=== PATIENT | female | born 1955 | race Caucasian/White ===

== ENCOUNTER → 2016-08-17 | Outpatient (CLI) | payer BC ==
[~2016-08-17] MED LIST: HYDR-5688 PO; IBUP-1050 PO
== END | disposition home or self-care (01) ==
LOC: C.PAPS 14:20
PROVIDERS: ATTEND Obstetrics & Gynecology
DX: Z01.419 Encounter for gynecological examination (general) (routine) without abnormal findings (principal)

== ENCOUNTER → 2016-11-09 | Outpatient (CLI) | payer BC ==
--- NOTE | 2016-11-09 18:56 | DIAGNOSTIC IMAGING REPORT ---
LUMBAR SPINE MIN 4 VIEWS CLINICAL HISTORY: Lower back pain. COMPARISON: Lumbar spine radiographs January 18, 2010 and MRI of the lumbar spine January 25, 2010. FINDINGS: A few calcific densities are again noted overlying the right hemithorax. These measure up to 5.4 cm. These reflect calcified pleural plaques. These were present on prior exam. There is mild levoscoliosis of the lumbar spine. Vertebral body heights are maintained. There is no fracture. There is moderate disc space narrowing and osteophytosis at L4-L5 as well as L5-S1. IMPRESSION: 1. Mild levoscoliosis of the lumbar spine. 2. Moderate degenerative disc disease at L4-L5 and L5-S1. 3. No lumbar spine fracture. 4. Several calcified pleural plaques within the right lower hemithorax. Electronically signed by: Obie Hoyos M.D. 11/09/2016 6:54 PM Dictated Date/Time: 11/09/2016 6:52 PM
== END | disposition home or self-care (01) ==
LOC: C.RDSM 15:47
PROVIDERS: ATTEND Physical Medicine & Rehabilitation Sports Medicine
DX: M51.36 Other intervertebral disc degeneration, lumbar region (principal); M51.37 Other intervertebral disc degeneration, lumbosacral region; J92.9 Pleural plaque without asbestos

== ENCOUNTER → 2016-11-29 | Outpatient (CLI) | payer BC | END | disposition home or self-care (01) | LOC: C.MAMM 14:48 | PROVIDERS: ATTEND Physical Medicine & Rehabilitation Sports Medicine | DX: S39.012A Strain of muscle, fascia and tendon of lower back, initial encounter (principal); X58.XXXA Exposure to other specified factors, initial encounter; M85.89 Other specified disorders of bone density and structure, multiple sites ==

== ENCOUNTER → 2017-04-24 | Outpatient (CLI) | payer BC | END | disposition home or self-care (01) | LOC: C.RDSM 12:00 | PROVIDERS: ATTEND Physical Medicine & Rehabilitation Sports Medicine | DX: M79.644 Pain in right finger(s) (principal) ==

== ENCOUNTER → 2017-04-27 | Outpatient (CLI) | payer BC ==
--- NOTE | 2017-04-28 07:43 | MAMMOGRAPHY REPORT ---
BILATERAL DIGITAL SCREENING MAMMOGRAM TOMOSYNTHESIS WITH CAD: 04/27/2017 CLINICAL HISTORY: Routine screening. Patient has no complaints. TECHNIQUE: Breast tomosynthesis in addition to standard 2D mammography was performed. Current study was also evaluated with a Computer Aided Detection (CAD) system. COMPARISON: Comparison is made to exams dated: 04/12/2016 mammogram, 10/02/2013 mammogram, 03/16/2015 ma mmogram, 09/25/2012 mammogram, 09/20/2011 mammogram, and 09/15/2010 mammogram - [facility] ter. BREAST COMPOSITION: The tissue of both breasts is heterogeneously dense, which may obscure small mas ses. FINDINGS: No suspicious masses, calcifications, or areas of architectural distortion are noted in ei ther breast. There has been no significant interval change compared to prior exams. IMPRESSION: ACR BI-RADS CATEGORY 1: NEGATIVE There is no mammographic evidence of malignancy. A 1 year screening mammogram is recommended. The pa tient will receive written notification of the results. Approximately 10% of breast cancers are not detected with mammography. A negative mammographic report should not delay biopsy if a clinically suggestive mass is present. Courtney Sequeira M.D. ah/:04/27/2017 16:03:25 Past Due Accounts Clerk: Sofya XIAO(R)(M), [facility] letter sent: Normal 1/2 BI-RADS Code: ACR BI-RADS Category 1: Negative
== END | disposition home or self-care (01) ==
LOC: C.MAMM 09:17
PROVIDERS: ATTEND Internal Medicine
DX: Z12.31 Encounter for screening mammogram for malignant neoplasm of breast (principal)

== ENCOUNTER → 2017-05-02 | Outpatient (CLI) | payer BC ==
[~2017-05-02] MED LIST changes: +GADAVIST IV PRN
--- NOTE | 2017-05-02 16:51 | DIAGNOSTIC IMAGING REPORT ---
R UPPER EXT NONJOINT COMBO CLINICAL HISTORY: 62 years-old Female presenting with R THUMB PAIN. TECHNIQUE: Multisequence, multiplanar MR imaging of the right hand was performed without the use of intravenous contrast. IV contrast: None. COMPARISON: Plain radiographs of the right and ureters from 04/24/2017. FINDINGS: Localizer images: Unremarkable. A marker is noted over the thumb at the site of clinical interest. Mild osteophytosis noted at the interphalangeal joint of the first finger. A marginal erosion is suggested along the radial aspect of the head of the proximal phalanx of the first finger. Subtle overlying enhancement noted (series 12 image 11). There is also mild edema and enhancement along the extensor tendon at the level of the interphalangeal joints (series 9 image 11 and series 12 image 11). A T2 hyperintense, T1 hypointense cystic region is noted in the ulnar aspect of the head of the fifth metacarpal with overlying cortical disruption (series 12 image 24) suggesting an erosion. Bone marrow signal intensity is otherwise normal. Regional musculature demonstrates normal muscle bulk and signal intensity. Visualized portions of the carpal tunnel are normal. IMPRESSION: 1. Subtle marginal erosion at the radial aspect of the head of the proximal phalanges of the first finger as well as possible erosion along the ulnar aspect of the head of the fifth metacarpal. These findings could suggest an inflammatory arthritis, including rheumatoid arthritis among other etiologies. 2. Mild reactive changes along the extensor tendon at the level of the interphalangeal joint of the first finger. These findings could suggest mild tenosynovitis. Electronically signed by: Josep Cleaning M.D. 05/02/2017 4:50 PM Dictated Date/Time: 05/02/2017 4:40 PM
== END | disposition home or self-care (01) ==
LOC: C.MRI 14:49
PROVIDERS: ATTEND Physical Medicine & Rehabilitation Sports Medicine
DX: M79.644 Pain in right finger(s) (principal)

== ENCOUNTER → 2017-08-31 | Outpatient (CLI) | payer BC, OTHER ==
[~2017-08-31] MED LIST changes: -GADAVIST IV PRN
== END | disposition home or self-care (01) ==
LOC: C.RDSM 08:00
PROVIDERS: ATTEND Physical Medicine & Rehabilitation Sports Medicine
DX: M25.571 Pain in right ankle and joints of right foot (principal); M25.522 Pain in left elbow; M54.5 Low back pain; M25.561 Pain in right knee; M25.562 Pain in left knee; S42.301A Unspecified fracture of shaft of humerus, right arm, initial encounter for closed fracture; X58.XXXA Exposure to other specified factors, initial encounter

== ENCOUNTER → 2017-09-18 | Outpatient (CLI) | payer OTHER | END | disposition home or self-care (01) | LOC: C.RDSM 08:10 | PROVIDERS: ATTEND Physical Medicine & Rehabilitation Sports Medicine | DX: S42.321A Displaced transverse fracture of shaft of humerus, right arm, initial encounter for closed fracture (principal); X58.XXXA Exposure to other specified factors, initial encounter ==

== ENCOUNTER → 2017-10-16 | Outpatient (CLI) | payer OTHER | END | disposition home or self-care (01) | LOC: C.RDSM 14:57 | PROVIDERS: ATTEND Physical Medicine & Rehabilitation Sports Medicine | DX: S42.301A Unspecified fracture of shaft of humerus, right arm, initial encounter for closed fracture (principal); X58.XXXA Exposure to other specified factors, initial encounter ==

== ENCOUNTER → 2017-10-20 | Outpatient (CLI) | payer OTHER ==
--- NOTE | 2017-10-20 17:52 | DIAGNOSTIC IMAGING REPORT ---
CERVICAL WITHOUT CONTRAST HISTORY: 62 years-old Female PAIN IN LEFT ARM acute neck and left arm pain with history of prior trauma COMPARISON: Chest radiographs 01/20/2010 TECHNIQUE: Multiplanar multisequence MRI of the cervical spine was obtained without contrast. FINDINGS: The pay clerk localizer images demonstrate no acute abnormality of the thorax, neck or imaged head. Levoscoliosis of the upper thoracic spine with mild dextroscoliosis of the cervical spine. Signal within the imaged cervical spinal cord is within normal limits. The imaged posterior fossa structures are unremarkable. No acute fracture, subluxation, focal bone marrow or soft tissue edema identified. C2-C3: Mild uncovertebral spurring and left-sided facet arthrosis. No central canal or foraminal narrowing. C3-C4: Mild uncovertebral spurring and facet arthrosis with mild left-sided foraminal narrowing. Central canal and right foramen are patent. C4-C5: Mild uncovertebral spurring and facet arthrosis no central canal or foraminal narrowing. C5-C6: Mild intervertebral disc space narrowing with circumferential disc osteophyte complex and minimal left-sided facet arthrosis. Scoliosis of the cervical spine is centered at this level with resultant narrowing of the thecal sac to 8 mm in AP dimension causing mild central canal, mild left and mild to moderate right foraminal narrowing. C6-C7: Mild to moderate intervertebral disc space narrowing with posterior disc osteophyte complex formation and mild facet arthrosis narrowing the thecal sac to 8 mm in AP dimension causing mild central canal and moderate left foraminal narrowing. The right foramen is patent. C7-T1: Mild facet arthrosis without central canal or foraminal narrowing. IMPRESSION: 1. Scoliosis of the thoracic and cervical spine without acute fracture, subluxation or focal bone marrow edema identified. 2. Mild multilevel facet arthrosis with discogenic degenerative changes seen most prominently at C5-C6 and C6-C7. 3. At C5-C6 there is mild central canal, mild left and mild to moderate right foraminal narrowing. 4. At C6-C7 there is mild central canal and moderate left foraminal stenosis. The above report was generated using voice recognition software. It may contain grammatical, syntax or spelling errors. Electronically signed by: Joaquin Rae M.D. 10/20/2017 5:50 PM Dictated Date/Time: 10/20/2017 5:38 PM
== END | disposition home or self-care (01) ==
LOC: C.MRIBC 16:20
PROVIDERS: ATTEND Physician Assistant
DX: M79.2 Neuralgia and neuritis, unspecified (principal); M79.602 Pain in left arm; M99.71 Connective tissue and disc stenosis of intervertebral foramina of cervical region

== ENCOUNTER → 2017-11-06 | Outpatient (CLI) | payer OTHER | END | disposition home or self-care (01) | LOC: C.RDSM 12:00 | PROVIDERS: ATTEND Physical Medicine & Rehabilitation Sports Medicine | DX: S52.032A Displaced fracture of olecranon process with intraarticular extension of left ulna, initial encounter for closed fracture (principal); S42.301A Unspecified fracture of shaft of humerus, right arm, initial encounter for closed fracture; M25.571 Pain in right ankle and joints of right foot; X58.XXXA Exposure to other specified factors, initial encounter ==

== ENCOUNTER → 2018-03-20 | Outpatient (CLI) | payer OTHER | END | disposition home or self-care (01) | LOC: C.MAMM 13:55 | PROVIDERS: ATTEND Orthopaedic Surgery | DX: M81.0 Age-related osteoporosis without current pathological fracture (principal) ==